=== PATIENT | female | born 1950 | race Caucasian/White ===

== ENCOUNTER 2023-06-02 17:50 | Observation (INO) ==
[2023-06-02 21:43] LABS: ABS Basophils 0.1 10^3/uL (0.0-0.1); ABS Monocytes 0.5 10^3/uL (0.0-0.9); ABS Neutrophils 9.5 10^3/uL (1.5-7.6); Eosinophil % 0.2 %; Hematocrit 42.1 % (35-45); Hemoglobin 14.5 g/dL (11.5-14.3); Mean Corpuscular Hemoglobin 33.2 pg (27-33); Mean Corpuscular Hgb Conc 34.5 g/dL (31-36); Mean Corpuscular Volume 96.1 fL (80-97); Mean Platelet Volume 7.6 fL (7.5-11.2); Platelet Count 310 10^3/uL (150-450); Red Blood Count 4.38 10^6/uL (3.63-4.92); Red Cell Distribution Width 13.1 % (12-17)
[2023-06-02 21:44] LABS: Urine Appearance Turbid; Urine Bilirubin Negative (Negative); Urine Blood Negative (Negative); Urine Color Yellow; Urine Glucose Negative (Negative); Urine Ketones 1+ (Negative); Urine Nitrite Negative (Negative); Urine Protein Trace (Negative); Urine Specific Gravity 1.024 (1.002-1.030); Urine Urobilinogen Negative (Negative)
[2023-06-02 21:50] LABS: Urine Bacteria 2+ /HPF (Absent); Urine Red Blood Cell 1+(3-5/hpf) /HPF (0-Trace); Urine Squamous Epithelial Cell Present /HPF (Absent); Urine White Blood Cell 3+(>20/hpf) /HPF (0-Trace)
[2023-06-02 22:29] LABS: Albumin 4.3 g/dL (3.2-5.2); Albumin/Globulin Ratio 1.7 (1-3); Calcium 9.4 mg/dL (8.6-10.3); Globulin 2.5 g/dL (2-4); Magnesium 2.5 mg/dL (1.9-2.7); Total Bilirubin 0.5 mg/dL (0.2-1.0); Total Protein 6.8 g/dL (6.4-8.9); eGFR CKD-EPI 59.1 (>60)
[2023-06-02 22:49] LABS: Potassium 4.1 mmol/L (3.5-5.0)
[2023-06-02 23:24] LABS: High Sensitivity Troponin 1 Hr 9 pg/mL (<15)
[2023-06-03] MEDS: Iodixanol (CONTRAST) 320 MG/ML 100 ML SDV IV ONE (00:44)
[2023-06-03] MEDS: cefTRIAXone 1 gm/50 mL D5W 1 GM/50 ML BAG IV ONE (01:04)
[2023-06-03] MEDS: NS 0.9% 1000 ml BAG 1,000 ML IV ONE (01:04)
[2023-06-03] MEDS: Labetalol IV 5 MG/ML 20 ml VIAL IV PUSH ONE ×3 (01:11→07:17)
[2023-06-03 01:18] LABS: TSH Ultra Thyroid Stim Horm 3.68 mcIU/mL (0.34-5.60)
[2023-06-03 06:20] LABS: ABS Basophils 0.1 10^3/uL (0.0-0.1); ABS Lymphocytes 1.1 10^3/uL (1.0-4.8); ABS Monocytes 0.6 10^3/uL (0.0-0.9); ABS Neutrophils 5.6 10^3/uL (1.5-7.6); Eosinophil % 0.6 %; Hematocrit 37.7 % (35-45); Mean Corpuscular Hemoglobin 33.1 pg (27-33); Mean Corpuscular Hgb Conc 34.5 g/dL (31-36); Mean Platelet Volume 7.8 fL (7.5-11.2); Nucleated Red Blood Cells % 0.1 %/100WBC (0.0-0.8); Platelet Count 263 10^3/uL (150-450); Red Blood Count 3.93 10^6/uL (3.63-4.92); Red Cell Distribution Width 13.1 % (12-17); White Blood Count 7.4 10^3/uL (3.8-11.8)
[2023-06-03 06:50] LABS: Calcium 8.7 mg/dL (8.6-10.3); Creatinine, Serum 0.8 mg/dL (0.51-0.95); Potassium 3.9 mmol/L (3.5-5.0); eGFR CKD-EPI 77.3 (>60)
[2023-06-03] MEDS: Enoxaparin 40 MG/0.4 ML SYR SUBCUT SCH (07:18)
[2023-06-04] MEDS: Labetalol IV 5 MG/ML 20 ml VIAL IV PUSH ONE (02:03)
[2023-06-05] MEDS ORDERED: Lidocaine 1% MPF 5 ML VIAL ONE (14:26)
[2023-06-05 15:24] VITALS: BP 155/65
== END 2023-06-05 18:00 | disposition home or self-care (01) ==
LOC: ED 17:50 → EDHOLD 17:50 → SUATTDRO 06-03 02:58 → MEDTELE 06-03 09:14
PROVIDERS: ADMIT Internal Medicine; ATTEND Internal Medicine